=== PATIENT | female | born 1940 ===

== ENCOUNTER 2016-06-07 13:26 | Emergency (ER) | payer MEDICARE, OTHER ==
[2016-06-07 13:39] VITALS: BP 145/85; PULSE 89; RESP 16; TEMP 98; O2SAT 98
--- NOTE | 2016-06-07 13:55 | ED PDOC ---
HPI: General Adult Time Seen by Provider: 06/07/16 13:44 Chief Complaint (Nursing): Chest Pain Chief Complaint (Provider): chest pain History Per: Patient History/Exam Limitations: no limitations Additional Complaint(s): 75yo female comes to the ED complaining of right upper chest pain for 1 week. She has been taking Advil but it was not helping. No cough or sputum, vomit. reports pain with deep breaths. Provides Rx referring patient to ED for further evaluation and requesting CTA chest. PMD: Anca Past Medical History Reviewed: Historical Data, Nursing Documentation, Vital Signs Vital Signs: Last Vital Signs Temp 98.0 F 06/07/16 13:31 Pulse 89 06/07/16 13:31 Resp 16 06/07/16 13:31 BP 145/85 06/07/16 13:31 Pulse Ox 98 06/07/16 14:17 - Medical History PMH: Diabetes, HTN, Osteoporosis - Family History Family History: States: Unknown Family Hx - Social History Drugs: Denies - Home Medications Home Medications: Ambulatory Orders Medication Instructions Recorded Naproxen [Naprosyn] 500 mg PO BID PRN #20 tablet 06/07/16 - Allergies Allergies/Adverse Reactions: Allergies Allergy/AdvReac Type Severity Reaction Status Date / Time tomato Allergy RASH Verified 06/07/16 13:31 Review of Systems ROS Statement: Except As Marked, All Systems Reviewed And Found Negative Constitutional: Negative for: Fever Cardiovascular: Positive for: Chest Pain Respiratory: Negative for: Cough, Sputum Gastrointestinal: Negative for: Vomiting Physical Exam - Reviewed Nursing Documentation Reviewed: Yes Vital Signs Reviewed: Yes - Physical Exam Appears: Positive for: Well, Non-toxic, No Acute Distress Head Exam: Positive for: ATRAUMATIC, NORMAL INSPECTION, NORMOCEPHALIC Skin: Positive for: Warm, Dry Eye Exam: Positive for: EOMI, PERRL ENT: Positive for: Normal ENT Inspection Cardiovascular/Chest: Positive for: Regular Rate, Rhythm, Other (tenderness to palpation of right chest around breast). Negative for: JVD Respiratory: Positive for: Normal Breath Sounds. Negative for: Rales, Rhonchi, Wheezing Gastrointestinal/Abdominal: Positive for: Soft. Negative for: Tenderness Extremity: Positive for: Normal ROM - Laboratory Results Result Diagrams: 06/07/16 14:28 06/07/16 14:28 - ECG O2 Sat by Pulse Oximetry: 98 (RA) Pulse Ox Interpretation: Normal Medical Decision Making Medical Decision Makin EKG, labs ordered. Disposition - Clinical Impression Clinical Impression: Atypical chest pain - Patient ED Disposition Is Patient to be Admitted: No Doctor Will See Patient In The: Office Counseled Patient/Family Regarding: Diagnosis, Need For Followup, Rx Given - Disposition Referrals: Sonido March MD [Medical Doctor] - Disposition: Routine/Home Disposition Time: 16:33 Condition: STABLE Additional Instructions: CT Chest PE protocol is negative for PE Prescriptions: Naproxen [Naprosyn] 500 mg PO BID PRN #20 tablet PRN Reason: Pain, Moderate (4-7) Instructions: Chest Pain (ED) Print Language: SOUTH AFR[place] Additional Comments - Additional Comments Additional Comments: Scribe Attestation: Documented by Jonatan Bernabe acting as a scribe for Margot Benjamin MD. Provider Scribe Attestation: All medical record entries made by the Scribe were at my direction and personally dictated by me. I have reviewed the chart and agree that the record accurately reflects my personal performance of the history, physical exam, medical decision making, and the department course for this patient. I have also personally directed, reviewed, and agree with the discharge instructions and disposition.
[2016-06-07 14:37] LABS: BASO # 0.1 K/uL (0.0-0.2); BASO % 0.7 % (0.0-2.0); EOS # 0.2 K/uL (0.0-0.7); EOS % 2.5 % (0.0-4.0); HEMATOCRIT 39.8 % (34.0-47.0); LYMPH # 2.3 K/uL (1.0-4.3); LYMPH % 26.5 % (20.0-40.0); MEAN CELL VOLUME 88.6 fl (81.0-99.0); MEAN CORPUSCULAR HEMOGLOBIN 29.8 pg (27.0-31.0); MEAN CORPUSCULAR HGB CONC 33.6 g/dL (33.0-37.0); MEAN PLATELET VOLUME 8.5 fl (7.2-11.7); MONO # 0.6 K/uL (0.0-0.8); MONO % 6.4 % (0.0-10.0); NEUT # 5.5 K/uL (1.8-7.0); NEUT % 63.9 % (50.0-75.0); NRBC % 0.1 % (0.0-0.0); RED CELL DISTRIBUTION WIDTH 13.7 % (11.5-14.5); WHITE BLOOD COUNT 8.6 K/uL (4.8-10.8)
[2016-06-07 14:49] LABS: CHLORIDE 103 mmol/L (98-107); POTASSIUM 4.5 MMOL/L (3.6-5.0); SODIUM 144 mmol/l (132-148)
[2016-06-07 14:51] LABS: GFR AFRICAN-AMERICAN > 60
[2016-06-07 14:52] LABS: BLOOD UREA NITROGEN 25 mg/dl (7-17); CALCIUM 10.1 mg/dL (8.4-10.2); CARBON DIOXIDE 25 mmol/L (22-30); GLUCOSE,RANDOM 94 mg/dL (65-105)
[2016-06-07] MEDS ORDERED: Iodixanol 320 MG/ML 100 ML BOTTLE IV ONE (14:54)
[2016-06-07] MEDS ORDERED: Sodium Chloride 0.9% 50 ML IV ONE (14:54)
[2016-06-07 15:22] LABS: PARTIAL THROMBOPLASTIN TIME 26.2 SECONDS (23.3-32.5)
--- NOTE | 2016-06-07 16:15 | CT ---
CTA chest PE protocol Indication: Chest pain for 1 week Technique: Contiguous axial images were obtained through the chest with intravenous contrast enhancement. Sagittal and coronal reconstructions were generated and reviewed. This CT exam was performed using 1 or more of the falling dose reduction techniques: Automated exposure control, adjustment of the MAA and/or kV according to patient size, and/or use of iterative reconstruction technique. IV Contrast: 80 mL Visipaque 320 Radiation dose (DLP): 378.98 MGy-cm. Comparison: None available Findings: Visualized portions of the inferior thyroid gland appear unremarkable. The mediastinal and hilar vascular structures appear within normal limits. The heart appears within normal limits of size. No large central or segmental pulmonary embolus evident. No focal consolidation. No pleural effusion. No pneumothorax. No suspicious pulmonary nodules measuring greater than 5 mm. Limited visualization of the upper abdomen reveals cholelithiasis. Hypoattenuation of the liver compatible with hepatic steatosis. Small hiatal hernia. Osseous demineralization. Degenerative changes. Impression: No acute pulmonary pathology identified. Limited visualization of the upper abdomen reveals cholelithiasis. Hepatic steatosis. Small hiatal hernia.
--- NOTE | 2016-06-09 18:21 | CARD ---
APPROVED REPORT EKG Measurement Heart [id number] <Conclusion> Normal sinus rhythm Normal ECG
== END 2016-06-07 16:40 | disposition home or self-care (01) ==
LOC: H.ER 13:26
DX: R07.89 Other chest pain (principal); I10 Essential (primary) hypertension; E11.9 Type 2 diabetes mellitus without complications
CPT/HCPCS: 71275; 80048; 84484; 85025; 85378; 85610; 85730; 99283; Q9967